=== PATIENT | female | born 1990 | race Hispanic/Latino ===

== ENCOUNTER 2018-12-31 10:25 | Day surgery (SDC) | payer BC ==
[2018-12-30 11:51] VITALS: BMI 20.3
[2018-12-31] MEDS ORDERED: Bupivacaine 0.5% Inj(30mL) IJ ONE ×3 (11:01→12:23)
[2018-12-31] MEDS ORDERED: Lidocaine 1% Inj (20ml) IJ ONE ×2 (11:01→12:23)
[2018-12-31] MEDS ORDERED: ceFAZolin 1 GM in Sodium Chloride 0.9% 100 ML IVPB ONE (11:01)
--- NOTE | 2018-12-31 11:06 | CP.PCM.PN ---
Subjective - Date & Time of Evaluation Date of Evaluation: 12/31/18 Time of Evaluation: 11:11 - Subjective Subjective: Podiatry progress note for Dr. Shukla 28 y/o female patient with no significant PMHx was seen and evaluated in same day surgery for procedure with Dr. Shukla today. Patient states she has had pain to her left foot for the past 2-3 years. Patient states she was diagnosed with posterior tibial tendonitis with possible fracture of the navicular. Patient received multiple corticosteroid injections with minimal relief. patient states she opted for surgical intervention as she failed outpatient therapy. patient denies any previous surgical history or anesthesia. patient states she last ate around 10 PM alst night. Patient has [employer] with her. Patient denies any chest pain, nausea, vomiting, shortness of breath, or abdominal pain at this time. PMHx: denied by patient PSHx: none Allergies: none Social Hx: denies smoking, uses EOTH socially Objective - Medications Medications: Current Medications Bupivacaine HCl (Marcaine 0.5%) 20 ml IJ ONCE ONE Stop: 12/31/18 11:02 Cefazolin Sodium 1 gm/ Sodium (Chloride) 100 mls @ 100 mls/hr IVPB ONCE ONE; Protocol Stop: 12/31/18 12:00 - Constitutional Appears: Well, Non-toxic, No Acute Distress - Head Exam Head Exam: ATRAUMATIC, NORMOCEPHALIC - Eye Exam Eye Exam: Normal appearance - Extremities Exam Extremities Exam: Full ROM, Normal Capillary Refill, Tenderness Additional comments: Lower Extremity Exam VASC: DP and PT 2/4 bilaterally, CFT less than 3 seconds X 10, TG within normal limits, no edema noted DERM: hypopigmentation patch noted at the level of the navicular medially, no open lesions, no erythema no, no other clinical signs of infection ORTHO: pain on palpation to the navicular medially, pain with eversion, minimal pain with ankle range of motion, MSK 5/5 NEURO: epicritic and protective sensations intact - Neurological Exam Neurological Exam: Alert, Awake, Oriented x3 - Psychiatric Exam Psychiatric exam: Normal Affect, Normal Mood - Skin Skin Exam: Normal Color Assessment and Plan - Assessment and Plan (Free Text) Assessment: 28 y/o female patient with no PMHx was seen and evaluated in [facility] for left foot surgery with Dr. Shukla Plan: Pt was seen and examined in SDS Pt NPO status was confirmed All pre-op testing and clearance in chart Pt has exhausted all conservative treatment at this time and is opting for surgical intervention Pt was explained procedure and post-operative course All pt's questions were answered to satisfaction No guarantees were made Pt understands all risks, benefits and complications of procedure Pt will follow-up with Dr. Shukla within 1 week of surgery
--- NOTE | 2018-12-31 11:06 | CP.SDSHP ---
Same Day Surgery H & P - History Proposed Procedure: Left foot Kidner procedure Pre-Op Diagnosis: Left posterior tibial tendonitis with accessory navicular - Previous Medical/Surgical History Pain: 4.Moderate Pain - Allergies Allergies: Allergies No Known Allergies Allergy (Verified 01/22/17 17:30) - Physical Exam Mental Status: Alert & Oriented x3 Neuro: WNL - {Optional Preform as Required} Integument: WNL - Impression Pt. Evaluated Today:Candidate for Anesthesia & Procedure: Yes - Date & Time Date: 12/31/18 Time: 11:21 Short Stay Discharge - Short Stay Discharge Admitting Diagnosis/Reason for Visit: S92.252k/ S86.1125 / M76.822/ Disposition: HOME/ ROUTINE Referrals: FAMILY PROVIDER,NO [Primary Care Provider] - Additional Instructions (Diet, Activity): -Patient in good/stable condition for discharge home -Pt to resume medications per medical reconciliation -Resume regular diet -Please keep dressing clean, dry, & intact to surgical site -Use plastic bag over bandage for showering -Wear post op shoe at all times when ambulating -Call clinic if you see signs of infection (redness, swelling, malodor) -Please make an appointment to see Dr. Shukla in office/clinic within 1 week for post-op check Progress Note/Discharge Note with Instructions: - Patient evaluated bedside in recovery s/p left kidner procedure. - After surgical procedure patient in NAD - (+) Void, (+) Appetite - Capillary refill time <3s and NVS intact. - Patient denies complaints at this time. - Post operative instructions and plan of care explained to patient at length. - Patient. acknowledges verbal understanding. - Patient stable for DC per podiatric surgery
[2018-12-31] MEDS ORDERED: Lactated Ringer's 1,000 ML IV ONE ×2 (11:15→12:03)
[2018-12-31] MEDS ORDERED: Sodium Chloride 0.9% 1,000 ML IV SCH (11:15)
[2018-12-31] MEDS ORDERED: Propofol 10 mg/ml Inj (20 ML) ONE (11:48)
[2018-12-31] MEDS ORDERED: Midazolam 2 MG/2 ML VIAL ONE (11:48)
[2018-12-31] MEDS ORDERED: Lidocaine 1% Inj (20ml) ONE (11:51)
[2018-12-31] MEDS ORDERED: Bupivacaine HCl 0.5% PF (30 ml) Inj ONE (11:51)
[2018-12-31] MEDS ORDERED: Lidocaine 1% 5ml Abboject ONE (11:58)
[2018-12-31 12:53] VITALS: RESP 18
[2018-12-31] MEDS ORDERED: HYDROmorphone 0.5 mg/0.5 ml ISec IVP PRN (13:40)
--- NOTE | 2018-12-31 13:43 | PCM.SURG1 ---
Surgeon's Initial Post Op Note - Surgeon's Notes Surgeon: Dr. Shukla DPM Molder Fitting: Dr. Fuentes DPM PGY-3 Type of Anesthesia: General Endo Anesthesia Administered By: Dr. Gage Pre-Operative Diagnosis: left tibial tuberosity fracture non-union or accessory bone Operative Findings: see dictation Post-Operative Diagnosis: same Operation Performed: left posterior tibial tendon tenosynovitis, sugical treatment of the fracture and advancement and reattachment of posteior tibial tendon and use of platlet rich plasma Specimen/Specimens Removed: left foot bone Estimated Blood Loss: EBL {In ML}: 1 Blood Products Given: N/A Drains Used: No Drains Post-Op Condition: Good Date of Surgery/Procedure: 12/31/18 Time of Surgery/Procedure: 13:43
[2018-12-31] MEDS ORDERED: Oxycodone/Acetaminophen 5/325 mg Tab PO PRN ×2 (13:44)
[2018-12-31] MEDS ORDERED: Lactated Ringer's 1,000 ML IV SCH (13:45)
[2018-12-31 14:20] VITALS: PULSE 62
--- NOTE | 2018-12-31 14:32 | RAD ---
Date of service: 12/31/2018 PROCEDURE: Left Foot Radiographs. HISTORY: s/p left foot sx COMPARISON: None. FINDINGS: BONES: Cast obscures fine bone and soft-tissue detail with exception of the majority of the digits. No displaced fractures identified throughout the foot and there is no subluxation or dislocation appreciated. JOINTS: Normal. SOFT TISSUES: There is questionable soft tissue lucency (emphysema) anteromedial to the ankle best appreciated in the oblique projection. Consider follow-up radiography without cast unless patient underwent recent instrumentation here. OTHER FINDINGS: None. IMPRESSION: Questionable lucency appreciated in the medial soft tissues anterior to the ankle. Consider repeat radiography without cast. No acute fracture or dislocation appreciable.
[2018-12-31] MEDS ORDERED: Oxycodone/Acetaminophen 5/325 mg Tab PO ONE (15:15)
[2018-12-31 16:03] VITALS: BP 110/62; TEMP 97.4; O2SAT 98
--- NOTE | 2019-01-03 20:33 | OP ---
PROCEDURE DATE: 12/31/2018 PREOPERATIVE DIAGNOSIS: Left tibial tuberosity fracture, nonhealing union or accessory bone with chronic posterior tibial tendonitis. POSTOPERATIVE DIAGNOSIS: Left tibial tuberosity fracture, nonhealing union or accessory bone with chronic posterior tibial tendonitis. PROCEDURE PERFORMED: Surgical treatment with removal of the fracture fragment and advancement and reattachment of the posterior tibial tendon, left with the use of platelet-rich plasma. SURGEON: Ross Shukla DPM JOWL TRIMMER: Anca Fuentes DPM, PGY-3 ANESTHESIOLOGIST: Sahil Gage MD ANESTHESIA: General. INDICATION: The patient is a 28-year-old female with the above-mentioned diagnosis. The patient is being treated by Dr. Shukla in his office on an outpatient basis where she has exhausted multiple forms of conservative treatment. The patient seeks surgical intervention at this time. All risks, benefits and possible complications of proposed procedure have been explained to the patient at length. The patient verbalized understanding and wishes to proceed. All questions were answered. No guarantees were given or implied. Consent was signed and n.p.o. status was confirmed prior to bringing the patient to the operating room. OPERATIVE PROCEDURE: The patient was brought into the operating room and placed on the operating room table in a supine position. A well-padded pneumatic thigh tourniquet was applied to the patient's left thigh. Once general anesthesia was achieved, a local injection consisting of 10 mL of 1:1 mixture of 1% lidocaine plain and 0.5% Marcaine plain was given in a local block fashion to the patient's left foot. PROCEDURE #1: Attention was directed to the medial aspect of the left midfoot where an approximately 5-cm curvilinear incision was made above the navicular tuberosity. Combination of sharp and blunt dissection was carried down to the subcutaneous tissue, retracting all vital neurovascular structures and ligating all necessary bleeders. Dissection was carried down to the posterior tibial tendon sheath where it was carefully incised and tacked for later closure. Next, the fragment of the navicular was visualized. Using sharp dissection, the fragment was removed and passed off the surgical field. The bony prominence was then smoothed down with a bone rasp. Next, a Arthrex 2.4 suture tack was utilized, and the tendon was reapproximated with the attached FiberWire and suture. The surgical site was then irrigated with copious amounts of normal sterile saline. The deep closure was achieved with #3-0 and 4-0 Vicryls, and the skin was reapproximated with #4-0 Monocryl. Postoperative dressings included wet-to-dry dressing, 4x4s, Aurora and a well-padded below-knee cast, which was bivalved. POSTOPERATIVE CONDITION: The patient tolerated the anesthesia and procedure well with no apparent complications or complaints. The patient was escorted from the operating room to the recovery room with vital signs stable and neurovascular structures intact. The patient will follow up with Dr. Shukla in his office on an outpatient basis. Anca Fuentes DPM Ross Shukla DPM
== END 2018-12-31 16:18 | disposition home or self-care (01) ==
LOC: H.OPSURG 10:25
PROVIDERS: ATTEND Podiatrist
DX: M76.822 Posterior tibial tendinitis, left leg (principal); S92.252K Displaced fracture of navicular [scaphoid] of left foot, subsequent encounter for fracture with nonunion; S82.152 Displaced fracture of left tibial tuberosity
CPT/HCPCS: 28238; 73630; 88304; 97161; G8978; G8979; J0690; J2250; J2704; J3010; J7030; J7120

== ENCOUNTER 2019-03-03 17:20 | Emergency (ER) | payer BC ==
[2019-03-03 17:20] VITALS: BMI 20.3
[2019-03-03 17:54] VITALS: TEMP 98; O2SAT 100
[2019-03-03] MEDS ORDERED: Lidocaine/Epi 1% 1:100000 20 ML IJ STA (18:30)
[2019-03-03] MEDS ORDERED: Tdap Vaccine 0.5 ml Vial (10-64 yrs) IM ONE (18:30)
[2019-03-03] MEDS ORDERED: Povidone Iodine Topical 10% Sol TOP STA (18:31)
[2019-03-03] MEDS ORDERED: Lidocaine 2% w Epi 1:100,000 Inj IJ ONE (18:34)
[2019-03-03] MEDS ORDERED: Povidone Iodine Oint 10% Foilpak UD ONE (18:37)
--- NOTE | 2019-03-03 19:47 | ED PDOC ---
Upper Extremity Pain/Injury Time Seen by Provider: 03/03/19 18:07 Chief Complaint (Nursing): Upper Extremity Problem/Injury Chief Complaint (Provider): Left arm pain History Per: Patient History/Exam Limitations: no limitations Onset/Duration Of Symptoms: Sudden Onset Current Symptoms Are (Timing): Still Present Quality: "Pain" Additional Complaint(s): 28 year old female with no significant family history presents to the ED with a left arm laceration after tripping and falling in the shower today. She was attempting to the get her puppy out of the bathroom when she slipped and fell, injuring her arm and unknown of what cut her arm. Patient also admits she had a surgery on her left ankle in December and she has been having increased pain and swelling since her fall. She is unsure if she is UTD with her Tetanus shot. Patient took Naproxen early this morning for her foot and she has not taken anything else since the fall. Otherwise, she denies numbness or tingling. Her last tetanus shot is unknown. Past Medical History Reviewed: Historical Data, Nursing Documentation, Vital Signs Vital Signs: Last Vital Signs Temp 98.0 F 03/03/19 17:51 Pulse 77 03/03/19 17:51 Resp 16 03/03/19 17:51 BP 113/77 03/03/19 17:51 Pulse Ox 100 03/03/19 17:51 - Medical History PMH: No Chronic Diseases - Family History Family History: States: Unknown Family Hx - Immunization History Hx Tetanus Toxoid Vaccination: Yes - Home Medications Home Medications: Ambulatory Orders Medication Instructions Recorded Ascorbic Acid [Vitamin C] 1,000 mg PO DAILY 12/31/18 diaZEpam [Valium] 5 mg PO ASDIR 12/31/18 oxyCODONE/Acetaminophen [Percocet 5 - 325 mg PO ASDIR 12/31/18 5/325 mg Tab] Ibuprofen [Motrin Tab] 600 mg PO Q6 PRN 7 Days tab 03/03/19 - Allergies Allergies/Adverse Reactions: Allergies Allergy/AdvReac Type Severity Reaction Status Date / Time No Known Allergies Allergy Verified 03/03/19 17:51 Review of Systems ROS Statement: Except As Marked, All Systems Reviewed And Found Negative Musculoskeletal: Positive for: Arm Pain (left) Neurological: Negative for: Numbness, Other (tingling ) Physical Exam - Reviewed Nursing Documentation Reviewed: Yes Vital Signs Reviewed: Yes - Physical Exam Appears: Positive for: No Acute Distress Pulses-Dorsalis Pedis (L): 2+ Pulses-Radial (L): 2+ Pulses-Radial (R): 2+ Extremity: Positive for: Normal ROM (of left ankle with normal flexion and extension; normal ROM at left elbow ), Capillary Refill (less than 2 seocnds on left arm and left ankle ), Other (mild edema medial left ankle prior surgey ). Negative for: Deformity (on medial left upper arm there is approximately 3.5 cm linear laceration; no active bleed, no erythema and no drainage with brachial pulse: 2+) Neurological/Psych: Positive for: Awake, Alert, Normal Tone, Oriented (x3) - ECG O2 Sat by Pulse Oximetry: 100 Medical Decision Making Medical Decision Making: Time: 18:30 Initial Plan: Tetanus vaccine Laceration repair Providone Iodine 10% 5ml Lidocaine/Epi 1% PROCEDURE: LACERATION REPAIR Performed by the emergency provider Location: medial left upper arm Length: 3.5 cm Description: clean wound edges,no foreign bodies Distal CMS: Normal. No deficits. Neurovascularly intact. Anesthesia: Lidocaine 1% with Epi Preparation: The wound was cleaned with NS and Betadyne. The area was prepped and draped in the usual sterile fashion. Exploration: The wound was explored and no foreign bodies were found. Procedure: The wound was closed with six 5:0 proline sutures Post-Procedure: Good closure and hemostasis. The patient tolerated the procedure well and there were no complications. CSM remains intact. Post procedure dressing applied Upon provider evaluation patient is medically stable, and requires no further treatment in the ED at this time. Patient will be discharged. Counseling was provided and all questions were answered regarding diagnosis and need for follow up with PMD. There is agreement to discharge plan. Return if symptoms persist or worsen. Scribe Attestation: Documented by Lillie Fraser, acting as a scribe for Lissy Timmons PA-C. Provider Scribe Attestation: All medical record entries made by the Scribe were at my direction and personally dictated by me. I have reviewed the chart and agree that the record accurately reflects my personal performance of the history, physical exam, medical decision making, and the department course for this patient. I have also personally directed, reviewed, and agree with the discharge instructions and disposition. Procedures - Time-Out Correct Patient: Yes Correct Procedure: Yes Correct Site Marked: Yes Medication Recon: Yes - Laceration/Wound Repair Left Upper Medial Arm Wound Length (cm): 3.5 Wound's Depth, Shape: linear Wound Explored: no foreign body removed Betadine Prep?: Yes Anesthesia: Lidocaine w/ Epi Wound Repaired With: Sutures Suture Size/Type: 5:0, proline Number of Sutures: 6 Wound Complexity: Simple Disposition - Clinical Impression Clinical Impression: Arm laceration - Patient ED Disposition Is Patient to be Admitted: No Counseled Patient/Family Regarding: Diagnosis, Need For Followup - Disposition Disposition: Routine/Home Disposition Time: 19:55 Condition: STABLE Additional Instructions: You have [address] that will need to be removed in 7 - 10 days by your primary care doctor or return to ER. Keep area covered and dry for the next 24hrs and then wash gently with soap and water and keep area clean. Return to ER if you develop redness at site of injury with fevers or pus drainage. Take Tylenol or Ibuprofen for pain. Prescriptions: Ibuprofen [Motrin Tab] 600 mg PO Q6 PRN 7 Days tab PRN Reason: Pain, Moderate (4-7) Instructions: Laceration Repair With Stitches (DC) Forms: [employer] (A[place]ijani), [facility] ED School/Work Excuse Print Language: AFGHAN
[2019-03-03 20:18] VITALS: BP 110/72; PULSE 75; RESP 18
== END 2019-03-03 20:12 | disposition home or self-care (01) ==
LOC: H.ER 17:20
DX: S41.112A Laceration without foreign body of left upper arm, initial encounter (principal); W19.XXXA Unspecified fall, initial encounter; Y92.002 Bathroom of unspecified non-institutional (private) residence as the place of occurrence of the external cause